=== PATIENT | male | born 2000 | race African-American/Black ===

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

== ENCOUNTER 2022-01-10 05:11 | Emergency (ER) | payer OTHER ==
[2022-01-10 05:26] VITALS: BP 116/76; PULSE 58; TEMP 98.1; BMI 21.9
[2022-01-10] MEDS ORDERED: DIPHTH,PERTUSS(ACELL),TET 0.5 ML DISP.SYRIN IM ONE ×2 (05:59→06:14)
== END 2022-01-10 06:44 | disposition home or self-care (01) ==
LOC: JER 05:11
PROC: 3E0234Z Introduction of Serum, Toxoid and Vaccine into Muscle, Percutaneous Approach (ICD-10-PCS; principal; 2022-01-10)
DX: S61.011A Laceration without foreign body of right thumb without damage to nail, initial encounter (principal); S61.215A Laceration without foreign body of left ring finger without damage to nail, initial encounter; W25.XXXA Contact with sharp glass, initial encounter
CPT/HCPCS: 73130-TC-RT-FY; 90471; 90715; 99284-25

== ENCOUNTER 2022-01-20 23:09 | Emergency (ER) | payer OTHER ==
[2022-01-20 23:19] VITALS: BP 105/67; PULSE 87; TEMP 98.3; BMI 19.7
[2022-01-21] MEDS ORDERED: BACITRACIN 0.9 GM PACKET ONE (00:34)
== END 2022-01-21 00:49 | disposition home or self-care (01) ==
LOC: JER 23:09
DX: S61.210A Laceration without foreign body of right index finger without damage to nail, initial encounter (principal); Y99.9 Unspecified external cause status; Z48.02 Encounter for removal of sutures
CPT/HCPCS: 99281-25

== ENCOUNTER 2022-10-13 09:52 | Emergency (ER) | payer OTHER ==
[2022-10-13 10:02] VITALS: BP 116/79; PULSE 98; RESP 18; TEMP 99; BMI 19.7
[2022-10-13] MEDS ORDERED: ACETAMINOPHEN 500 MG TABLET (FP) PO ONE (10:37)
[2022-10-13] MEDS ORDERED: IBUPROFEN 600 MG TABLET (FP) PO ONE ×2 (10:37→10:47)
[2022-10-13] MEDS ORDERED: ACETAMINOPHEN 500 MG TABLET (FP) ONE (10:47)
== END 2022-10-13 11:20 | disposition home or self-care (01) ==
LOC: JERFT 09:52
DX: M25.571 Pain in right ankle and joints of right foot (principal); W10.9XXA Fall (on) (from) unspecified stairs and steps, initial encounter; X50.0XXA Overexertion from strenuous movement or load, initial encounter
CPT/HCPCS: 73610-TC-RT-FY; 99283-25

== ENCOUNTER 2023-05-15 09:44 | Emergency (ER) | payer OTHER ==
[2023-05-15 09:56] VITALS: BP 112/71; PULSE 91; RESP 18; TEMP 98.6; BMI 17.3
[2023-05-15 12:39] LABS: EPI CELLS 1 /uL (0-25.1); HYALINE CASTS 0 /uL (0-3.1); PH,URINE 7.5 (5.0-8.0); URINE APPEARANCE CLEAR; URINE BACTERIA 101 /uL (0-1359); URINE BILIRUBIN NEGATIVE (NEGATIVE); URINE COLOR YELLOW; URINE GLUCOSE (UA) NEGATIVE (NEGATIVE); URINE KETONE NEGATIVE (NEGATIVE); URINE LEUK ESTERASE 2+ (NEGATIVE); URINE NITRITE NEGATIVE (NEGATIVE); URINE PROTEIN TRACE (NEGATIVE); URINE RBC 121 /uL (0-23.9); URINE WBC 2544 /uL (0-25.8)
[2023-05-15] MEDS ORDERED: cefTRIAXone SODIUM 1 GM VIAL ONE (12:59)
[2023-05-15] MEDS ORDERED: IBUPROFEN 600 MG TABLET (FP) PO ONE ×2 (13:17→13:30)
[2023-05-15] MEDS ORDERED: DOXYCYCLINE HYCLATE 100 MG CAPSULE PO ONE ×2 (13:17→13:30)
== END 2023-05-15 13:34 | disposition home or self-care (01) ==
LOC: JER 09:44
DX: R10.31 Right lower quadrant pain (principal); N50.82 Scrotal pain; N39.0 Urinary tract infection, site not specified; N45.1 Epididymitis
CPT/HCPCS: 36415; 76870-TC; 81003; 87086; 87491; 87591; 99284-25